=== PATIENT | male | born 2005 | race Caucasian/White ===

== ENCOUNTER 2024-04-07 16:36 | Emergency (ER) | payer OTHER ==
[~2024-04-07] VITALS: Ht 182.9 cm; Wt 127.0 kg
[2024-04-07 16:46] VITALS: BP 126/70; PULSE 101; RESP 18; TEMP 99.8; O2SAT 95
[2024-04-07] MEDS: FLUORESCEIN OPTH STRIP 1 MG OP ONE (17:00)
[2024-04-07] MEDS: TETRACAINE HCL/PF 0.5% OPTH 4 ML BTL OP ONE (17:00)
[2024-04-07] MEDS ORDERED: POLY15SO74 OP (18:11)
[2024-04-07] MEDS ORDERED: ERYT5OIN51 BOTH EYES (18:11)
[2024-04-07 18:29] VITALS: BP 126/70; PULSE 101; RESP 18; TEMP 99.8; O2SAT 95
== END 2024-04-07 18:24 | disposition home or self-care (01) ==
LOC: MED 16:36
DX: H16.203 Unspecified keratoconjunctivitis, bilateral (principal); Z79.899 Other long term (current) drug therapy
CPT/HCPCS: 99283